=== PATIENT | female | born 1965 | race Caucasian/White ===

== ENCOUNTER 2016-07-04 18:35 | Inpatient (IN) | payer OTHER ==
[~2016-07-04] VITALS: Ht 152.4 cm; Wt 148.8 kg
--- NOTE | ~2016-07-04 | EKG ---
[address] [place] [address] ELECTROCARDIOGRAM REPORT Name: SHAWN BAI Room #: 436-P ADM IN M.R.#: [id number] Admission: 07/04/16 Attend Phys: Sona Benitez MD Discharge: Date of : 61 Report #: [id number] THIS REPORT FOR: //name// [facility] Test Date: 2016-07-06 Test Time: 09:57:42 Pat Name: SHAWN BAI Department: Room: 436 P Gender: F Supervisor Contact And Service Clerks: theresa : 1965 Requested By: Jose Yañez Order Number: [id number] MD: Rito Christine Measurements Intervals Diana Rate: 103 P: 64 AL: 164 QRS: -30 QRSD: 92 T: 72 QT: 350 QTc: 458 Interpretive Statements Sinus tachycardia Atrial premature complexes LAE, consider biatrial enlargement Inferior infarct, old Anterior infarct, old Baseline wander in lead(s) V5 No previous ECG available for comparison Electronically Signed On 07-07-2016 9:20:10 HEAT TREAT TECHNICIAN by Rito Christine [email or web address] <ELECTRONICALLY SIGNED> By: Rito Christine MD, [facility] 07/07/1620 0957 Rito Christine MD, [facility] /EPI
--- NOTE | ~2016-07-04 | HC ---
[facility] [place] [address] CONSULTATION Name: SHAWN BAI Room #: 436-P [facility] IN M.R.#: [id number] Admission: 07/04/16 Attend Phys: Sona Benitez MD Discharge: 07/07/16 Date of : 61 Report #: [id number] THIS REPORT FOR: //name// CC: Annita Benitez DATE OF SERVICE: 07/07/2016 HISTORY OF PRESENT ILLNESS: We are asked to see this lady with respect to her underlying mood disorder. She notes that she has not seen a psychiatrist in many years and her primary care doctor has taken over such prescriptions. She has felt fairly stable on a combination that included Seroquel, Prozac, Abilify, and Wellbutrin. PAST PSYCHIATRIC HISTORY: She does have a longstanding mood disorder. She has only been hospitalized psychiatrically once. There has not been any suicide attempts. PAST MEDICAL HISTORY: COPD exacerbation, morbid obesity, respiratory failure, community-acquired pneumonia. ALLERGIES: SULFA. CURRENT MEDICATIONS: Include furosemide 20 daily, Solu-Medrol 20 twice daily, losartan 50 daily, hydrochlorothiazide 12.5 daily, Prozac 40 daily, Abilify 15 daily, Plavix 75 daily, atorvastatin 80 daily. SOCIAL HISTORY: She lives with her sister. No active substance abuse issues. MENTAL STATUS EXAM: female, casually dressed, normal spontaneous speech, no formal thought disorder. No suicidal ideation, no homicidal ideation, no hallucinations, no delusions. Insight and judgment fair. DIAGNOSES: AXIS I: Bipolar affective disorder. RECOMMENDATIONS: Appears stable on current medications at this time. She has not seen a psychiatrist or a therapist in many years. It does not appear that this is necessary at this time, so can continue with primary care physician. <ELECTRONICALLY SIGNED> By: Alexi Elizalde MD 07/14/16 1215 1522 0131 Alexi Elizalde MD /nt
--- NOTE | ~2016-07-04 | D ---
[facility] [place] [address] DISCHARGE SUMMARY Name: SHAWN BAI Room #: 436-P [facility] IN M.R.#: [id number] Admission: 07/04/16 Attend Phys: Sona Benitez MD Discharge: 07/07/16 Date of : 61 Report #: [id number] THIS REPORT FOR: //name// CC: Annita Benitez DATE OF SERVICE: 07/07/2016 DATE OF ADMISSION: 07/04/2016. DATE OF DISCHARGE: 07/07/2016. DISCHARGE DIAGNOSES: 1. Fmwsn-mw-jpwjege hypercapnic respiratory failure. 2. Chronic obstructive pulmonary disease exacerbation. 3. Community-acquired pneumonia. 4. Diastolic congestive heart failure. 5. Poorly-controlled hypertension. 6. 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 7. Morbid obesity. 8. Bipolar disorder. CONSULTS: 1. Cardiology, Jose Yañez M.D., FACC. 2. Pulmonary, Boris Gonzales M.D. 3. Psychiatry, Alexi Elizalde M.D. PROCEDURES: None. HOSPITAL COURSE: The patient is a 51-year-old female with a history of COPD and chronic respiratory failure, on 3 liters of home O2, was transferred from [facility] secondary to [id number]-be-cfbheev respiratory failure, COPD exacerbation and pneumonia. Please see details of the admission dictated by Laney Wolf on July 04. The patient was admitted for COPD exacerbation and a community-acquired pneumonia, and started on aggressive pulmonary toiletry, O2 support, DuoNebs, Solu-Medrol and antibiotics. Pulmonary was consulted. Chest x-ray at our facility showed right basilar infiltrate and ____ small effusion and mild pulmonary edema. Her BMP was 1900, and she was felt to have CHF exacerbation as well. Troponin did bump a little, and Cardiology was consulted for her CHF exacerbation and her elevated troponin. Her troponin at its max was 0.43. It came down to 0.36. Again, it was felt to be related to her CHF and her pneumonia. Her lactate was 1.4. For details of the hospital course, please see [facility]. Over the course of several days, her pulmonary status and her cardiac status improved remarkably, and she was cleared for discharge from that perspective on the . She did have a CT of the chest that showed borderline prominent nodes over the mediastinum. She will have [facility] [address] [place] [address] DISCHARGE SUMMARY Name: SHAWN BAI Room #: 436-P [facility] IN M.R.#: [id number] Admission: 07/04/16 Attend Phys: Sona Benitez MD Discharge: 07/07/16 Date of : 61 Report #: [id number] followup with Pulmonary in this regard. At one point during the hospital stay, she was very somnolent and after receiving some narcotics. Her niece, who is a nurse at our facility, reports that she has had behavioral issues like this in the past related to her bipolar disorder. Dr. Elizalde with Psychiatry was consulted, and he restarted most of her medications. He felt that her mood issues were related to the steroids. At that point, there were no other problems once her behavior was back to baseline as well, and she was cleared for discharge by all parties. Nurses reported no other problems. DISCHARGE DISPOSITION: To home. DISCHARGE PHYSICAL EXAMINATION: VITAL SIGNS: Temperature of 36.7, pulse of 96, blood pressure 162/83 and O2 sat is 95% on 4 liters. GENERAL: She is awake and alert, answering questions appropriately, in no acute respiratory distress. HEENT: Normocephalic and atraumatic. Pupils were equal. NECK: Supple. CARDIOVASCULAR: Regular rate and rhythm, no murmurs. LUNGS: Clear to auscultation bilaterally. No crackles or wheeze. ABDOMEN: Soft, no distention and no tenderness. EXTREMITIES: No edema. NEUROLOGIC: Nonfocal. DISCHARGE MEDICATIONS: Spironolactone 25 daily, Lantus sliding scale, Augmentin 1 p.o. b.i.d., Lactinex 1 packet daily, prednisone ____, metformin 1000 b.i.d., gabapentin 600 daily, Plavix 75 daily, vitamins 1 daily, colchicine 0.6 daily, Bupropion XL 300 daily, benazepril/hydrochlorothiazide 1 tablet daily, Prozac 40 daily, Lasix 20 daily, Ellinger p.r.n., atorvastatin 80 daily, nitroglycerin p.r.n., Singulair 10 daily, Abilify 15 daily, multivitamin daily, Fiber-Con p.r.n., Colace p.r.n., Symbicort 2 puffs b.i.d., Spiriva 1 inhalation daily, albuterol p.r.n., Daliresp 500 mcg daily and aspirin 81 daily. DIET: Diabetic, heart healthy, low sodium, fluid-restricted diet. ACTIVITY: As tolerated. FOLLOWUP: Follow up with primary care in 1 week. Follow up with cardiology in 6 weeks. Follow up with pulmonary in 2 weeks. Follow up with Psychiatry in 1 week. DISCHARGE INSTRUCTIONS: Repeat chest x-ray, CMP and CBC in 1 week, and to seek immediate medical attention if symptoms worsen or recur or if she has any other significant medical concerns. [address] [address] DISCHARGE SUMMARY Name: SHAWN BAI Room #: 436-P [facility] IN M.R.#: [id number] Admission: 07/04/16 Attend Phys: Sona Benitez MD Discharge: 07/07/16 Date of : 61 Report #: [id number] Discharge planning took 45 minutes. I explained to her discharge diagnoses, treatment plan and appropriate followup in detail. I also coordinated care with staff and other physicians. <ELECTRONICALLY SIGNED> By: Sona Benitez MD 08/14/16 1053 1518 13 Sona Benitez MD /nt
--- NOTE | ~2016-07-04 | HC ---
[facility] [place] [address] CONSULTATION Name: SHAWN BAI Room #: 436-P ADM IN M.R.#: [id number] Admission: 07/04/16 Attend Phys: Sona Benitez MD Discharge: Date of : 61 Report #: [id number] THIS REPORT FOR: //name// CC: Annita Benitez Patient's Chart DATE OF SERVICE: 07/05/2016 HISTORY OF PRESENT ILLNESS: The patient is a 51-year-old single white female who I was asked to see in the hospital today after she complained of being short of breath. The patient has an extensive past medical history. She apparently had a stent placed in the LAD here at [facility] in 2005. She has been followed by my partner, Dr. Green. She is not very active because of her large size. She weighed 300 pounds. She actually underwent a repeat cardiac catheterization when I saw her in March at [facility]. Angiogram from the right radial artery showed an ejection fraction of 35% with no restenosis of stent in the LAD. It was recommended that she be treated medically. The patient is not very active because of her large size. She lives by herself and does not have a car. Recently, she has noticed increasing shortness of breath. She denied any cough or fever. She finally went to [facility] last night. She was transferred to [facility] and admitted for further evaluation and treatment. She denies recent chest pain, palpitations or syncope. PAST MEDICAL HISTORY: Significant for no other major surgical procedures. She has a history of diabetes, hypertension, and hyperlipidemia. MEDICATIONS: At home consist of the following: She is on oxygen. She is on ProAir, Abilify, aspirin, Lipitor, benazepril, Symbicort, bupropion, Plavix, diltiazem, Paxil, Lasix, insulin. ALLERGIES: She has an allergy to SULFA DRUGS. FAMILY HISTORY: Positive for heart disease. SOCIAL HISTORY: She is single, never , has no children. She is on disability. Lives in [place], [place]. Quit smoking in 2011. No alcohol abuse. REVIEW OF SYSTEMS: She has had a previous stroke, apparently affecting her vision. She has no history of peptic ulcer disease, liver disease, kidney disease, cancer. She does have a history of depression and sees a psychiatrist. PHYSICAL EXAMINATION: [facility] [address] [place] [address] CONSULTATION Name: SHAWN BAI Room #: 436-P [facility] IN [facility]#: [id number] Admission: 07/04/16 Attend Phys: Sona Benitez MD Discharge: Date of : 61 Report #: [id number] GENERAL: Revealed a middle-aged overweight female who is lying in bed. She appeared in no distress. VITAL SIGNS: Blood pressure 140/70, pulse is 90. She is afebrile. HEENT: She is anicteric. Conjunctivae are pink. Mucous membranes are moist. NECK: Veins difficult to assess due to obesity. CHEST: Without wheezes. CARDIOVASCULAR: Regular rate and rhythm, grade 2 systolic ejection murmur. ABDOMEN: Obese. EXTREMITIES: Had no pitting edema. Dorsalis pedis pulse 1+ bilaterally. SKIN: Cool and dry. NEUROLOGIC: Nonfocal. Her workup, she had a chest x-ray that showed normal heart size, right basilar infiltrate, mild pulmonary edema. She had lab work. Sodium 139, potassium 5.0, BUN was 53, creatinine 1.4. Glucose 336, troponin was 0.36. BNP 1910. White blood cell count 12.8, hemoglobin 12.3. ABG, pH 7.33, pCO2 61, pO2 81. IMPRESSION AND RECOMMENDATIONS: 1. Chronic obstructive pulmonary disease. The patient received bronchodilators. 2. Acute on chronic diastolic heart failure. Recommend Lasix. 3. Coronary artery disease. Previous stent. Heart catheterization 4 months ago showed no restenosis. I do not believe she had a myocardial infarction. 4. Cardiomyopathy. I would recommend a beta jerica and FREDO inhibitor. 5. Morbid obesity. 6. Diabetes. <ELECTRONICALLY SIGNED> By: Jose Yañez MD, [facility] 07/06/16 0832 1725 0521 Jose Yañez MD, FAC /nt
[~2016-07-04 18:35] MED LIST: ABILIFY15 MG PO; AMARYL4 MG PO; ASPIR 8181 MG PO; ASPIRIN EC325 MG PO; ASPIRIN325 PO; ATORVASTATIN CA40 MG PO; BENAZEPRIL-HCT1 EA10 PO; BENICAR HCT 201 EACH PO; BUPROPION XL150 MG PO; CARDIZEM CD240 MG PO; CENTRUM SILVER1 EAC4 PO; COLCRYS0.6 MG PO; DALIRESP500 MCG PO; FIBERCON625 M1 PO; FISH OIL 1,2001 EAC4 PO; FISHOIL PO; FLUOXETINE HCL40 MG PO; FUROSEMIDE PO; GLUCOPHAGE1000 MG PO; GLUCOPHAGE500 MG PO; HUMALOG100 UNIT/1 SQ; HUMULIN N100 UNIT/1 SQ; LASIX 20 MG TAB20 MG PO; LIPITOR80 MG PO; LORTAB 5-500 T1 EAC1 PO; MEDROLDOSEPACK; MULTIVITAMIN PO; NEURONTIN600 MG PO; NITROSTAT0.4 M1 SL; NOVOLIN N100 UNIT/1 SUBQ; NOVOLOG100 UNIT/1; NOVOLOG100 UNIT/1 SUBQ; PLAVIX 75 MG TA75 M1 PO; PLAVIX 75 MG TA75 MG PO; PRENATAL FORMU1 EAC4 PO; PROAIR HFA8.5 GM NASAL; SINGULAIR 10 MG10 M1 PO; SPIRIVA INH; STOOL SOFTENER100 MG PO; SYMBICORT80 MCG/4.5 INH; SYMBYAX 6-25 M1 EACH PO; TRILIPIX135 MG PO; VITAMIN D1000 UNI1 PO; ZOCOR40 MG PO; ZOCOR80 MG PO
[2016-07-04 19:35] VITALS: BP 168/93
[2016-07-04 20:29] LABS: HEMATOCRIT 36.5 % (37.0-47.0); HEMOGLOBIN 11.6 gm/dL (12.0-15.0); MCH 28.2 pg (26.0-34.0); MCHC 31.9 % (28.0-37.0); MCV 88.6 fL (80.0-100.0); RBC 4.13 mil/uL (4.20-5.00); WBC 11.3 thou/uL (4.0-11.0)
[2016-07-04 20:36] LABS: CALCIUM 9.3 mg/dL (8.5-10.1); CREATININE 1.7 mg/dL (0.6-1.3); POTASSIUM 5.2 mmol/L (3.5-5.1)
[2016-07-04 20:42] LABS: ALBUMIN 2.8 g/dL (3.4-5.0); TOTAL BILIRUBIN 0.4 mg/dL (<0.1-1.0); TOTAL PROTEIN 7.5 g/dL (6.4-8.2)
[2016-07-04 20:49] LABS: ABG SAMPLE TYPE ARTERIAL; BE(vivo) 5.1 mmol/L (-2 to +3); HCO3 32.2 mmol/L (22.0-26.0); LACTATE 1.76 mmol/L (0.5-2.0); O2(CT) 16.8 mL/dL (15.0-23.0); PCO2 59.3 mmHg (35.0-45.0); STICK SITE L.RADIAL; pH 7.353 (7.360-7.450); sO2 96.9 % (92.0-98.0)
[2016-07-04 22:52] VITALS: BP 164/92
[2016-07-04 23:55] VITALS: BP 170/96
[2016-07-05 04:05] VITALS: BP 182/99
[2016-07-05 06:46] VITALS: BP 176/86
[2016-07-05 07:53] VITALS: BP 151/79
[2016-07-05 10:32] LABS: HEMATOCRIT 38.2 % (37.0-47.0); HEMOGLOBIN 12.3 gm/dL (12.0-15.0); MCH 28.1 pg (26.0-34.0); MCHC 32.2 % (28.0-37.0); MCV 87.4 fL (80.0-100.0); RBC 4.37 mil/uL (4.20-5.00); RDW 16.3 % (10.5-14.5); WBC 12.8 thou/uL (4.0-11.0)
[2016-07-05 10:53] LABS: ALBUMIN 2.9 g/dL (3.4-5.0); CALCIUM 9.6 mg/dL (8.5-10.1); CREATININE 1.4 mg/dL (0.6-1.3); TOTAL BILIRUBIN 0.3 mg/dL (<0.1-1.0); TOTAL PROTEIN 7.8 g/dL (6.4-8.2); TROPONIN-I 0.36 ng/mL (<0.04-0.07)
[2016-07-05 12:00] VITALS: BP 151/75
[2016-07-05 16:00] VITALS: BP 149/75
[2016-07-05 19:30] VITALS: BP 164/81
[2016-07-06] VITALS (7 sets, daily range): BP systolic 133–155; BP diastolic 72–89
[2016-07-06 01:06] LABS: GLYCOHEMOGLOBIN (HGB A1C) 6.1 % (4.8-5.6)
[2016-07-06 05:45] LABS: HEMATOCRIT 40.9 % (37.0-47.0); HEMOGLOBIN 12.5 gm/dL (12.0-15.0); MCH 27.6 pg (26.0-34.0); MCHC 30.6 % (28.0-37.0); MCV 90.2 fL (80.0-100.0); RBC 4.53 mil/uL (4.20-5.00); RDW 16.1 % (10.5-14.5); WBC 14.5 thou/uL (4.0-11.0)
[2016-07-06 05:53] LABS: CALCIUM 9.6 mg/dL (8.5-10.1); CREATININE 1.2 mg/dL (0.6-1.3); POTASSIUM 4.8 mmol/L (3.5-5.1)
[2016-07-06 05:58] LABS: CHOLESTEROL 220 mg/dL (<200); HDL CHOLESTEROL 51 mg/dL (>40); LDL CHOLESTEROL 145 mg/dL (<100); TC:HDL 4.3 Ratio (Not establshd); TRIGLYCERIDE 123 mg/dL (<150); VLDL 25 mg/dL (<40)
[2016-07-06 06:09] LABS: TSH 2.13 uIU/mL (0.450-4.500)
[2016-07-06 13:51] LABS: ABG SAMPLE TYPE ARTERIAL; BE(vivo) 10.4 mmol/L (-2 to +3); HCO3 36.3 mmol/L (22.0-26.0); LACTATE 1.53 mmol/L (0.5-2.0); O2(CT) 18.8 mL/dL (15.0-23.0); O2Hb 93.5 % (92.0-98.0); PCO2 53.5 mmHg (35.0-45.0); PO2 72.7 mmHg (80.0-100.0); STICK SITE L.RADIAL
[2016-07-06 18:08] LABS: ALBUMIN 2.6 g/dL (3.4-5.0); CALCIUM 9.7 mg/dL (8.5-10.1); CREATININE 1.2 mg/dL (0.6-1.3); PHOSPHORUS 3.7 mg/dL (2.5-4.9); POTASSIUM 5.4 mmol/L (3.5-5.1)
[2016-07-07 03:53] VITALS: BP 159/86
[2016-07-07 06:14] LABS: HEMATOCRIT 41.5 % (37.0-47.0); HEMOGLOBIN 13.3 gm/dL (12.0-15.0); MCH 27.9 pg (26.0-34.0); MCHC 32.1 % (28.0-37.0); MCV 87.2 fL (80.0-100.0); RBC 4.76 mil/uL (4.20-5.00); RDW 16.3 % (10.5-14.5); WBC 12.2 thou/uL (4.0-11.0)
[2016-07-07 06:34] LABS: CALCIUM 9.3 mg/dL (8.5-10.1); CREATININE 1.3 mg/dL (0.6-1.3); POTASSIUM 4.8 mmol/L (3.5-5.1)
[2016-07-07 08:00] VITALS: BP 156/76
[2016-07-07 12:00] VITALS: BP 162/83
[2016-07-07] MEDS ORDERED: NOVOLOG100 UNIT/1 SUBQ (12:59)
[2016-07-07] MEDS ORDERED: ALDACTONE25 MG PO (12:59)
[2016-07-07] MEDS ORDERED: NOVOLIN N100 UNIT/3 SUBQ (12:59)
[2016-07-07] MEDS ORDERED: PROBIOTIC1 EAC1 PO (13:03)
[2016-07-07] MEDS ORDERED: PREDNISONE 10 M10 MG PO (13:03)
[2016-07-07] MEDS ORDERED: AUGMENTIN 875875 MG PO (13:03)
[2016-07-07 15:33] VITALS: BP 162/83
== END 2016-07-07 15:55 | disposition home health service (06) | DRG 871 ==
LOC: 4S 18:35
PROVIDERS: Family Medicine; Hospitalist; Internal Medicine Cardiovascular Disease; Nurse Practitioner
PROC: 5A09357 Assistance with Respiratory Ventilation, Less than 24 Consecutive Hours, Continuous Positive Airway Pressure (ICD-10-PCS; principal; 2016-07-07)
DX: A41.9 Sepsis, unspecified organism (principal); I50.33 Acute on chronic diastolic (congestive) heart failure; J18.9 Pneumonia, unspecified organism; J96.22 Acute and chronic respiratory failure with hypercapnia; G93.40 Encephalopathy, unspecified; N17.0 Acute kidney failure with tubular necrosis; J44.1 Chronic obstructive pulmonary disease with (acute) exacerbation; I42.9 Cardiomyopathy, unspecified; I67.5 Moyamoya disease; J44.0 Chronic obstructive pulmonary disease with (acute) lower respiratory infection; Z68.44 Body mass index [BMI] 60.0-69.9, adult; E78.5 Hyperlipidemia, unspecified; E66.01 Morbid (severe) obesity due to excess calories; F31.9 Bipolar disorder, unspecified; E11.65 Type 2 diabetes mellitus with hyperglycemia; E78.00 Pure hypercholesterolemia, unspecified; I11.0 Hypertensive heart disease with heart failure; G47.33 Obstructive sleep apnea (adult) (pediatric); I27.2 Other secondary pulmonary hypertension; E11.51 Type 2 diabetes mellitus with diabetic peripheral angiopathy without gangrene; I25.10 Atherosclerotic heart disease of native coronary artery without angina pectoris; Z95.5 Presence of coronary angioplasty implant and graft; Z79.899 Other long term (current) drug therapy; Z79.82 Long term (current) use of aspirin; Z88.2 Allergy status to sulfonamides; Z87.891 Personal history of nicotine dependence; I25.2 Old myocardial infarction; Z79.02 Long term (current) use of antithrombotics/antiplatelets; Z86.73 Personal history of transient ischemic attack (TIA), and cerebral infarction without residual deficits; Z83.3 Family history of diabetes mellitus; Z79.4 Long term (current) use of insulin; Z99.81 Dependence on supplemental oxygen
CPT/HCPCS: 10100